=== PATIENT | male | born 2000 | race Two or more races ===

== ENCOUNTER 2021-02-16 18:29 | Emergency (ER) | payer BC ==
[~2021-02-16] VITALS: Ht 175.3 cm; Wt 83.0 kg
--- NOTE | 2021-02-16 21:59 | PHYS DOC ---
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 Patient rates his pain an 8 out of 10. He denies focal weakness, numbness or tingling, skin color change, skin temperature change. Denies any past medical history. Review of Systems: Review of Systems: Constitutional: Denies fever or chills. [] Eyes: Denies change in visual acuity. [] HENT: Denies nasal congestion or sore throat. [] Respiratory: Denies cough or shortness of breath. [] Cardiovascular: Denies chest pain or edema. [] GI: Denies abdominal pain, nausea, vomiting, bloody stools or diarrhea. [] : Denies dysuria. [] Musculoskeletal: Denies back pain or joint pain. [] Integument: Denies rash. [] Neurologic: Denies headache, focal weakness or sensory changes. [] Endocrine: Denies polyuria or polydipsia. [] Lymphatic: Denies swollen glands. [] Psychiatric: Denies depression or anxiety. [] Heart Score: C/O Chest Pain: No Risk Factors: Risk Factors: DM, Current or recent (<one month) smoker, HTN, HLP, family history of CAD, obesity. Risk Scores: Score 0 - 3: 2.5% MACE over next 6 weeks - Discharge Home Score 4 - 6: 20.3% MACE over next 6 weeks - Admit for Clinical Observation Score 7 - 10: 72.7% MACE over next 6 weeks - Early Invasive Strategies Current Medications: Current Medications Medications (Trade) Dose Ordered Sig/Caitlin Start Time Stop Time Status Last Admin Dose Admin Acetaminophen/ Hydrocodone Bitart (Lortab 5/325) 1 tab 1X ONCE 02/16/21 22:00 02/16/21 22:01 Lidocaine HCl (Lidocaine 1% 20ml Vial) 20 ml 1X ONCE 02/16/21 22:00 02/16/21 22:01 Allergies: Allergies: Allergies Coded Allergies Type Severity Reaction Last Updated Verified No Known Drug Allergies 02/16/21 No Physical Exam: PE: Constitutional: Well developed, well nourished, no acute distress, non-toxic appearance. [] HENT: Normocephalic, atraumatic, bilateral external ears normal, oropharynx moist, no oral exudates, nose normal. [] Eyes: PERRLA, EOMI, conjunctiva normal, no discharge. [] Neck: Normal range of motion, no tenderness, supple, no stridor. [] Cardiovascular:Heart rate regular rhythm, no murmur [] Lungs & Thorax: Bilateral breath sounds clear to auscultation [] Abdomen: Bowel sounds normal, soft, no tenderness, no masses, no pulsatile masses. [] Skin: Warm, dry, no erythema, no rash. [] Back: No tenderness, no CVA tenderness. [] Extremities: No tenderness, no cyanosis, no clubbing, ROM intact, no edema. [] Neurologic: Alert and oriented X 3, normal motor function, normal sensory function, no focal deficits noted. [] Psychologic: Affect normal, judgement normal, mood normal. [] Current Patient Data: Vital Signs: Vital Signs Date Time Temp Pulse Resp B/P (MAP) Pulse Ox O2 Delivery O2 Flow Rate FiO2 02/16/21 21:30 98.4 63 18 138/78 (98) 99 Room Air 98.4 EKG: EKG: [] Radiology/Procedures: Radiology/Procedures: [] Impression: [facility] [address] [place] [address] IMAGING REPORT Signed PATIENT: JOSE MARIA CAMEJO ACCOUNT: [id number] : 2000 LOCATION: ER AGE: 20 SEX: M EXAM STATUS: REG ER ORD. 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 No acute fracture identified. Joint spaces are well-maintained. Bone mineralization is normal IMPRESSION: 1. No acute osseous abnormality. 2. Soft tissue gas in the suprapatellar region with numerous tiny radiopaque foreign bodies. Electronically signed by: Fabien Plunkett MD (02/16/2021 10:37 PM) [facility] DICTATED and SIGNED BY: FABIEN PLUNKETT MD DATE: 02/16/21 [id number] 0 Course & Med Decision Making: Course & Med Decision Making Pertinent Labs and Imaging studies reviewed. (See chart for details) See HPI. Alert and oriented x4. Ambulatory with steady gait. No joint laxity. He can put pressure on the joint. Pedal pulse strong and present. Cap refill less than 2 seconds. Skin pink warm and dry. Patient is given hydrocodone. He originally went to urgent care and they washed out for him and sent him to the ED is because they said they could not do anything more for him. Patient will be placed in a knee immobilizer after suture. I will also place him on antibiotics. 3 stitches were placed far apart leaving gaps so the wound can drain. The wound is flushed copiously with chlorhexidine and saline to try to get out and clean all debris's. Unfortunately there are debris's that are down deeper that could not get all them out. Patient is notified of this. That is why I am placing him on antibiotic and I did not so the laceration very tightly. Laceration repair Location: Right patella 2-1/2 inches with a depth of 3 mm Local anesthesia: 1% lidocaine Interrupted sutures/Internal sutures: 3 sutures using 3-0 Nerve/ligament/muscle damage: None Cleaning and irrigation: Chlorhexidine and saline The appropriate timeout was taken. The area was prepped and draped in the usual sterile fashion. The wound was copiously irrigated with normal saline and chlorhexidine. Patient tolerated well without complication. Dressing was applied to the area follow-up education is given to observe for signs and symptoms of infection, bleeding and to follow-up promptly if these occur. Patient can return in 48 hours for a wound recheck. Sutures to be removed in 7 to 10 days. I have spoken to Dr Pollock concerning this injury and he has reviewed the xrays. He states ok to sew and give antibiotics. [] Thierry Disclaimer: Thierry Disclaimer: This electronic medical record was generated, in whole or in part, using a voice recognition dictation system. Departure Departure Impression: Primary Impression: Knee injury Qualified Codes: S89.91XA - Unspecified injury of right lower leg, initial encounter Additional Impression: Laceration Disposition: HOME / SELF CARE / HOMELESS Condition: STABLE Referrals: UNKNOWN PCP NAME (PCP) JUANJOSE POLLOCK MD Patient Instructions: Laceration Care, Adult, Sutured Wound Care Additional Instructions: Follow-up with your primary care or Dr. Pollock. Return sooner if there are signs of infection such as redness or drainage and increased pain. Take ibuprofen or Tylenol for your pain. Also use ice to the area. Using the knee immobilizer and keep the area clean and covered. Take the antibiotic until it is gone. Scripts Cephalexin (CEPHALEXIN) 500 Mg Capsule 1 CAP PO QID, #40 CAP Prov: LEVON MORE APRN 02/16/21 LEVON MORE APRN Feb 16, 2021 21:59
[2021-02-16] MEDS ORDERED: HYDROcodone/APAP 5/325MG 1 TAB TABLET PO ONE (22:00)
[2021-02-16] MEDS ORDERED: LIDOCAINE 1% Multi-Dose 20 ML VIAL. INJ ONE (22:00)
--- NOTE | 2021-02-16 22:40 | RAD ---
Exam: Right knee 4 views INDICATION: Laceration in the right medial knee TECHNIQUE: Frontal, lateral, oblique and sunrise views of the right knee Comparisons: None FINDINGS: Soft tissue gas noted in the suprapatellar region with a few tiny radiopaque foreign bodies seen. No acute fracture identified. Joint spaces are well-maintained. Bone mineralization is normal IMPRESSION: 1. No acute osseous abnormality. 2. Soft tissue gas in the suprapatellar region with numerous tiny radiopaque foreign bodies. Electronically signed by: Fabien Reese MD (02/16/2021 10:37 PM) [facility]
[2021-02-16] MEDS ORDERED: CEPH500C PO (23:23)
[2021-02-16 23:37] VITALS: BP 121/54
== END 2021-02-17 00:10 | disposition home or self-care (01) ==
LOC: ER 18:29
DX: S81.011A Laceration without foreign body, right knee, initial encounter (principal); W26.8XXA Contact with other sharp object(s), not elsewhere classified, initial encounter; Y93.89 Activity, other specified; Y92.89 Other specified places as the place of occurrence of the external cause; Y99.8 Other external cause status
CPT/HCPCS: 12001; 73564; 99285; J3490